=== PATIENT | female | born 1955 | race Caucasian/White ===

== ENCOUNTER 2022-04-26 00:20 | Day surgery (SDC) | payer MEDICARE, SELFPAY ==
[2022-04-07 13:44] VITALS: BMI 23.4
[2022-04-26 08:13] VITALS: BP 121/80; PULSE 72; RESP 20; TEMP 36.6
[2022-04-26] MEDS: LACTATED RINGERS 1,000 ML 150 ML IV CONT (08:26)
--- NOTE | 2022-04-26 08:45 | P.PNAN_ITS ---
Anes - Initial Pre Proc Eval Procedure: Operation Date: 04/26/22 10:30 Proposed Procedures p Screening Colonoscopy - Ronny Mendenhall MD Date/Time: 04/26/22 08:45 Surgeon: Ronny Mendenhall MD Pre Op Diagnosis: neoplasm screening Patient Data Age: 67 Gender: F Height: 1.6 m Weight: 59.9 kg Last Vital Signs Temp 97.8 F 04/26/22 08:13 Pulse 72 04/26/22 08:13 Resp 20 04/26/22 08:13 BP 121/80 04/26/22 08:13 O2 Del Method Room Air 04/26/22 08:13 Allergies Allergy/AdvReac Type Severity Reaction Status Date / Time No Known Allergies Allergy Verified 04/26/22 08:11 Home Medications Medication Instructions Recorded Confirmed Type calcium carbonate 600 mg-vitamin 1 cap PO DAILY 03/30/22 04/07/22 History D3 12.5 mcg (500 unit) capsule (Calcium 600 with Vitamin D3) levothyroxine 88 mcg capsule 88 mcg PO DAILY 03/30/22 04/07/22 History peg 3350-electrolytes 236 240 ml PO Q10M #4,000 mL 04/22/22 Rx gram-22.74 gram-6.74 gram-5.86 gram solution (Golytely) peg 3350-electrolytes 236 240 ml PO Q10M #4,000 mL 04/22/22 Rx gram-22.74 gram-6.74 gram-5.86 gram solution (Golytely) Patient hx anesthesia problems: none Family hx anesthesia problems: none Results Review: All pre-operative results and documents have been reviewed as part of the pre- operative evaluation. [facility] Past Medical History Medical History (Updated 03/30/22 @ 11:02 by Yamile Eddy MD) History of vaginal delivery x 3 Hypothyroidism Surgical History Surgical History (Updated 03/30/22 @ 10:53 by Merle Mederos MA) History of laparoscopy uterine cyst removal [place] teeth removed Family History Family History (Updated 03/30/22 @ 10:55 by Merle Mederos MA) Father Hodgkin lymphoma Heart disease Mother Thyroid disorder Sibling Polymyositis associated with autoimmune disease Grandparent Diabetes mellitus Social History Social History Smoking status: Never smoker Alcohol intake: never Substance use: never Substance use type: does not use Living arrangements: with family Spiritual care concerns: No Anes - Eval Final PreProcedure Day of Procedure 04/26/22 08:45 Patient weight: normal Heart: regular rate and rhythm Lungs: clear to auscultation Airway: Mallampati scale class II Neurological: alert and oriented Last oral intake: >/= 8 hours ASA classification: II Emergent: no Anesthetic plan: proceed Anesthesia type and monitoring: general GIVS and standard monitoring Results Review: All pre-operative results and documents have been reviewed as part of the pre- operative evaluation. Informed Consent: The patient's anesthetic plan and its attendant risks and benefits were discussed with the patient/family/POA. Questions were solicited and answers provided to the satisfaction of the patient/family/POA.
[2022-04-26] MEDS: SIMETHICONE ORAL SUSPENSION 20 MG/0.3 ML 30 ML BOTTLE 0.6 ML IRRIGATION (09:00)
--- NOTE | 2022-04-26 09:06 | PM.IMHP ---
H&P: HPI History of Present Illness Date/Time: 04/26/22 09:06 Chief Complaint: Neoplasia screening. Narrative: This is a 67-year-old white female patient presents for screening colonoscopy. Patient reports prior colonoscopy performed in [facility] was more than 10 years ago. she was told to follow up after 10 years. Patient reports her current weight appetite and bowel movements are normal. Patient denies abdominal pain. She has had no bleeding. Family history is noncontributory. Review of Systems Review of Systems: Review of systems noncontributory. [facility] Past Medical History Medical History (Updated 04/26/22 @ 09:07 by Ronny Mendenhall MD) History of vaginal delivery x 3 Hypothyroidism Surgical History Surgical History (Updated 03/30/22 @ 10:53 by Merle Mederos MA) History of laparoscopy uterine cyst removal [place] teeth removed Family History Family History (Updated 03/30/22 @ 10:55 by Merle Mederos MA) Father Hodgkin lymphoma Heart disease Mother Thyroid disorder Sibling Polymyositis associated with autoimmune disease Grandparent Diabetes mellitus Social History Social History Smoking status: Never smoker Alcohol intake: never Substance use: never Substance use type: does not use Living arrangements: with family Spiritual care concerns: No Meds Home Medications and Allergies Home Medications Medication Instructions Recorded Confirmed Type calcium carbonate 600 mg-vitamin 1 cap PO DAILY 03/30/22 04/07/22 History D3 12.5 mcg (500 unit) capsule (Calcium 600 with Vitamin D3) levothyroxine 88 mcg capsule 88 mcg PO DAILY 03/30/22 04/07/22 History peg 3350-electrolytes 236 240 ml PO Q10M #4,000 mL 04/22/22 Rx gram-22.74 gram-6.74 gram-5.86 gram solution (Golytely) peg 3350-electrolytes 236 240 ml PO Q10M #4,000 mL 04/22/22 Rx gram-22.74 gram-6.74 gram-5.86 gram solution (Golytely) Allergies Allergy/AdvReac Type Severity Reaction Status Date / Time No Known Allergies Allergy Verified 04/26/22 08:11 Vital Signs Vital Signs - 24 hr 04/26/22 08:13 Temperature 97.8 F Pulse Rate 72 Respiratory Rate 20 Blood Pressure 121/80 Oxygen Delivery Room Air Exam Narrative: Physical exam reveals patient to be alert. Vital signs stable. HEENT exam is unremarkable. Patient is anicteric. Lungs are clear to auscultation and percussion. Heart is without murmur or extra sounds. Abdominal exam bowel sounds are present soft nontender with no organomegaly. Digital external rectal exam is normal. Assessment and Plan Assessment and plan (1) Encounter for screening colonoscopy: Code(s): Z12.11 - Encounter for screening for malignant neoplasm of colon Status: Acute Assessment and Plan: Patient presents today for screening colonoscopy. Appears to be at average risk for colon polyps. Further recommendations will be given after endoscopy.
[2022-04-26 09:09] VITALS: BP 136/75; PULSE 82; RESP 22
[2022-04-26 09:19] VITALS: BP 114/73; PULSE 83; RESP 29
[2022-04-26 09:29] VITALS: BP 109/73; PULSE 62; RESP 29
== END 2022-04-26 09:43 | disposition home or self-care (01) ==
PROVIDERS: PCP Family Medicine; Visit Provider Internal Medicine Gastroenterology
PROC: 0DJD8ZZ Inspection of Lower Intestinal Tract, Via Natural or Artificial Opening Endoscopic (ICD-10-PCS; CPT 45378; principal; 2022-04-26 10:30)
DX: Z12.11 Encounter for screening for malignant neoplasm of colon (principal); K64.8 Other hemorrhoids; E03.9 Hypothyroidism, unspecified
CPT/HCPCS: G0121; J2704; J7120